=== PATIENT | female | born 1995 | race Caucasian/White ===

== ENCOUNTER 2021-04-15 14:14 | Emergency (ER) | payer BC, SELFPAY ==
--- NOTE | ~2021-04-15 | XR_ITS ---
EXAMINATION: XR WRIST, RIGHT CLINICAL INFORMATION: Right hand and wrist pain COMPARISON: None TECHNIQUE: Right wrist 4 views including scaphoid view. FINDINGS: Mild soft tissue swelling. Slightly comminuted intra-articular distal radial fracture is seen extending to the ulnar aspect of the articular margin with a gap of approximately 0.1 cm. The medial fracture fragment is slightly displaced in a medial and posterior direction. The adjacent ulna and carpal bones are unremarkable. No additional findings. XR/XR hand wrist RT IMPRESSION: Comminuted distal radial intra-articular fracture. CT of the wrist could be obtained for further evaluation.
[2021-04-15 14:37] VITALS: BP 135/80; PULSE 83; RESP 18; TEMP 36.4; O2SAT 100; BMI 25.0
--- NOTE | 2021-04-15 15:41 | ED.EXTPRO ---
HPI - Extremity Problem General Chief complaint: Extremity Injury, Upper Stated complaint: rt wrist injury Time Seen by Provider: 04/15/21 15:20 Source: patient Mode of arrival: ambulatory Limitations: no limitations History of Present Illness HPI Narrative: 26-year-old female who presents emergency department for evaluation of right wrist injury. The patient was riding a skateboard and she fell backwards on outstretched arms. She developed immediate pain in her right wrist. She states that the pain is a constant, pain which is worse with movement. She also injured her left hand but she states the pain is mild in her left hand. The patient denies any other injury from the fall. The patient is from the [facility] and she is traveling to [place] and should be back in [place] on Friday (2 days from now). Patient denied being ill in any way prior to her fall. Related Data Allergies Allergy/AdvReac Type Severity Reaction Status Date / Time No Known Allergies Allergy Verified 04/15/21 14:42 Review of Systems Review of Systems: Yes all other systems are reviewed and are negative PMFSH Past Medical History PMFSH Narrative: Social history: The patient lives in the [facility] and is traveling to [place] and should be home in 2 days. She denies tobacco use. She occasionally drinks alcohol . She denies drug use. Medical History Anxiety Asthma Depression PTSD (post-traumatic stress disorder) Social History Social History Advance Directives: No Advance Directives Information Provided: No Patient : No Physical Exam Vital Signs: Vital Signs: Last Vital Signs Temp 97.5 F 04/15/21 14:37 Pulse 83 04/15/21 14:37 Resp 18 04/15/21 14:37 BP 135/80 04/15/21 14:37 Pulse Ox 100 04/15/21 14:37 Body Mass Index 25.0 Const: General: cooperative and healthy appearing Nutritional Appearance: average body habitus Orientation/consciousness: oriented to person Limitations: no limitations HENMT: Head: Yes normal to inspection and Yes normocephalic Eyes: General: appearance normal, both eyes and all related structures Resp: Effort & Inspection: normal respiratory effort Neuro: General: oriented to person Extrem: Other: The patient has a tender area on the palm of her left hand with no abrasion. The patient's right wrist reveal tenderness over the distal radius, she has normal pulses. She has normal capillary refill. There is no tenderness palpate kaiser over the wrist bones, there is no navicular tenderness. Psych: Appearance: grossly normal Course Course Course Narrative: 26-year-old female who presents emergency department for evaluation of right wrist injury sustained after she fell off a skateboard. Physical examination did reveal tenderness palpation of the distal radius with a deformity in this area. Extremity was neurovascular intact. X-ray of the right wrist revealed a comminuted fracture of the distal radius with only minimal displacement, the fracture does going to the joint space. The patient was placed in a padded sugar-tong wrist splint . After splint was applied I re-evaluated the patient in extremities neurovascular intact. Patient was discharged home. She was advised to take Tylenol ibuprofen for the pain. She is advised to follow-up with an orthopedic doctor in the [facility]. She was given verbal and printed instructions prior to discharge. Discharge Plan Discharge Clinical Impression: Distal radius fracture, right Patient Disposition: Home, Self-Care Instructions: Wrist Fracture in Adults (ED) Additional Instructions: Keep the sugar-tong wrist splint on until you are re-evaluated by an orthopedic doctor /provider in [facility]. You should try to follow-up within 1 week. Take ibuprofen 200 mg pills, 3 pills every 6 hours as needed for pain. Take Tylenol (acetaminophen) 500 mg pills, 2 pills every 4 to 6 hours as needed for pain. Follow-up with your doctor in 2 days. Please return to the emergency department if your symptoms get worse or if you develop any symptoms that are concerning to you.
[2021-04-15] MEDS: Ibuprofen 600 MG TABLET PO (15:58)
== END 2021-04-15 15:59 | disposition home or self-care (01) ==
PROVIDERS: Emergency Provider Emergency Medicine Emergency Medical Services
DX: S52.501A Unspecified fracture of the lower end of right radius, initial encounter for closed fracture (principal); V00.131A Fall from skateboard, initial encounter; Y93.51 Activity, roller skating (inline) and skateboarding; Y92.9 Unspecified place or not applicable; Y99.9 Unspecified external cause status
CPT/HCPCS: 29125; 73110; 73130; 99283